=== PATIENT | female | born 1930 | race Two or more races ===

== ENCOUNTER 2019-12-16 07:27 | Outpatient (CLI) | payer OTHER | END 2019-12-16 07:38 | disposition home or self-care (01) | LOC: SONOGRAMA 07:27 | PROVIDERS: ATTEND Internal Medicine Gastroenterology | DX: K30 Functional dyspepsia (principal); K59.09 Other constipation; R14.0 Abdominal distension (gaseous); R19.5 Other fecal abnormalities ==

== ENCOUNTER 2020-01-25 11:49 | Outpatient (CLI) | payer OTHER | END 2020-01-25 14:13 | disposition home or self-care (01) | LOC: NUCLEAR 11:49 | PROVIDERS: ATTEND Internal Medicine Rheumatology | DX: M81.0 Age-related osteoporosis without current pathological fracture (principal) ==

== ENCOUNTER 2022-02-08 10:51 | Outpatient (CLI) | payer OTHER | END 2022-02-08 10:53 | disposition home or self-care (01) | LOC: NUCLEAR 10:51 | PROVIDERS: ATTEND Internal Medicine Rheumatology | DX: M81.0 Age-related osteoporosis without current pathological fracture (principal) ==